=== PATIENT | female | born 1955 | race Caucasian/White ===

== ENCOUNTER 2020-04-10 18:18 | Outpatient (CLI) | payer MEDICARE, SELFPAY ==
--- NOTE | ~2020-04-10 | XR_ITS ---
EXAMINATION: XR tibia fibula LT 2V EXAM DATE: 04/10/2020 19:03 INDICATION: No known recent injury provided at this time. Pain of the left leg. TECHNIQUE: Left tibia/fibula frontal and lateral projections obtained and reviewed. There is no prio r study for comparison. FINDINGS: Left tibial and fibular shafts unremarkable. There is mild to moderate left knee primary o steoarthritis. There are no acute fractures or dislocations identified. There is no subcutaneous gas . The soft tissue is unremarkable. There are no radiopaque foreign bodies. IMPRESSION: Unremarkable tibia and fibula. Reviewed, dictated and finalized at location G.
--- NOTE | ~2020-04-10 | XR_ITS ---
EXAMINATION: XR hip LT min 2V, XR femur LT min 2V EXAM DATE: 04/10/2020 19:03 INDICATION: No known recent injury provided at this time. Pain of the left hip, leg. TECHNIQUE: Left hip frontal, 'frog leg' projections for interpretation. Left femur frontal and latera l projections of the proximal aspect, frontal and lateral projections of the lower aspect for review. There is no prior study for comparison. FINDINGS: Smooth left hip femoral head contour, no radiographic evidence of avascular necrosis. Ther e is mild left hip primary osteoarthritis. There are no acute fractures or dislocations identified. There is no subcutaneous gas. The soft tissue is unremarkable. There are no radiopaque foreign bod ies. The left femoral shaft and thigh soft tissues are unremarkable. IMPRESSION: Mild left hip osteoarthritis. Reviewed, dictated and finalized at location G. IMPRESSION: Mild left hip osteoarthritis.
--- NOTE | ~2020-04-10 | XR_ITS ---
EXAMINATION: XR knee LT 3V EXAM DATE: 04/10/2020 19:02 INDICATION: No known recent injury provided at this time. Pain of the left knee. TECHNIQUE: Three projections of the left knee. Comparison is made to prior examination from 8. FINDINGS: No evidence osteochondral defect or joint body in the left knee joint. There is mild to m oderate patellofemoral and tibiofemoral primary osteoarthritis. Small suprapatellar spur. Mild to mo derate size spurring at the patellofemoral compartment. No joint effusion. There are no acute fractur es or dislocations identified. There is no subcutaneous gas. The soft tissue is unremarkable. The re are no radiopaque foreign bodies. IMPRESSION: Mild to moderate left knee osteoarthritis, slight progression compared to prior study. Reviewed, dictated and finalized at location . IMPRESSION: Mild to moderate left knee osteoarthritis, slight progression jacy red to prior study.
--- NOTE | ~2020-04-10 | XR_ITS ---
EXAMINATION: XR ankle LT min 3V EXAM DATE: 04/10/2020 19:03 INDICATION: No known recent injury provided at this time. Pain of the left ankle. TECHNIQUE: Left ankle frontal, lateral and oblique projections obtained and reviewed. Comparison is m blayne to prior examination from 10/05/2018. FINDINGS: The left ankle mortise appears intact. There are moderate-sized posterior and inferior c alcaneal spurs. The ankle joint is unremarkable. There are no acute fractures or dislocations identif ied. There is no subcutaneous gas. The soft tissue is unremarkable. There are no radiopaque forei gn bodies. IMPRESSION: Moderate sized left calcaneal spurs. Reviewed, dictated and finalized at location G.
== END 2020-04-10 18:19 | disposition home or self-care (01) ==
PROVIDERS: PCP Family Medicine; Visit Provider Nurse Practitioner Family
DX: M25.552 Pain in left hip (principal); M79.605 Pain in left leg; M25.572 Pain in left ankle and joints of left foot; M25.462 Effusion, left knee; M25.562 Pain in left knee; M16.12 Unilateral primary osteoarthritis, left hip; M77.32 Calcaneal spur, left foot; M17.12 Unilateral primary osteoarthritis, left knee
CPT/HCPCS: 73502; 73552; 73562; 73590; 73610

== ENCOUNTER 2020-09-13 06:53 | Outpatient (NON) | payer MEDICARE, SELFPAY ==
[2020-09-14 13:44] LABS: SARS-CoV-2 RNA PCR Negative
== END 2020-09-13 06:54 ==
LOC: ANHCOVIDDT 07:16
PROVIDERS: PCP Family Medicine; Visit Provider Physician Assistant Medical
DX: Z20.828 Contact with and (suspected) exposure to other viral communicable diseases (principal); R09.89 Other specified symptoms and signs involving the circulatory and respiratory systems
CPT/HCPCS: 87635; C9803; U0003

== ENCOUNTER → 2020-10-29 13:01 | Outpatient (CLI) | payer MEDICARE, SELFPAY ==
--- NOTE | ~2020-10-29 | XR_ITS ---
EXAMINATION: XR lumbar spine 2-3V DATE: 10/29/2020 13:20 INDICATION: Right-sided low back pain TECHNIQUE: Anteroposterior and lateral views of the lumbar spine, and cone-down lateral view of the l umbosacral junction were obtained. COMPARISON: 09/07/2017 FINDINGS: There is no fracture, dislocation, or subluxation. The vertebral body heights are normal. T here is moderate loss of intervertebral disc space height at L5-S1. Mild loss of intervertebral space height is present at L3-4. Small degenerative osteophytes project from the anterior endplates of mul tiple vertebral bodies. There is moderate to severe multilevel facet osteoarthritis. Surgical clips i n the right upper quadrant are likely from prior cholecystectomy. IMPRESSION: 1. Mild lumbar spondylosis without acute findings or significant interval change. Reviewed, dictated and finalized at location A. 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 Mild lumbar spondylosis without acute findings or significant interval marshall ordonez
== END ==
PROVIDERS: PCP Family Medicine; Visit Provider Nurse Practitioner Family
DX: M54.42 Lumbago with sciatica, left side (principal); M54.41 Lumbago with sciatica, right side; G89.29 Other chronic pain
CPT/HCPCS: 72100

== ENCOUNTER 2020-11-05 14:54 | Outpatient (CLI) | payer MEDICARE, SELFPAY ==
--- NOTE | ~2020-11-05 | MR_ITS ---
EXAMINATION: MR lumbar spine wo con DATE: 11/05/2020 15:51 INDICATION: Lumbago with left-sided sciatica. TECHNIQUE: Magnetic resonance imaging (MRI) of the lumbar spine was performed without intravenous con trast. Sequences included sagittal T2-weighted FSE, sagittal T2-weighted FS FSE, sagittal T1-weighted FSE, and axial T2-weighted FSE. COMPARISON: Lumbar spine MRI 10/01/2017 FINDINGS: There is 20 degrees dextroscoliosis of thoracolumbar spine. There are Schmorl's nodes at T1 1-T11 and T11-T12. There is a hemangioma in L3 vertebral body. There is mildly decreased disc height from T12-L1 through L3-L4. The distal spinal cord signal intensity is normal. The conus medullaris is at L1. The following disc levels are specifically discussed: L1-L2: The disc is bulging. There is mild bilateral facet joint osteoarthritis. There is mild bilater al neural foraminal stenosis. There is mild central canal stenosis. L2-L3: The disc is bulging. There is mild bilateral facet joint osteoarthritis. There is mild bilater al neural foraminal stenosis. There is mild central canal stenosis. L3-L4: The disc is bulging. There is moderate right and severe left facet joint osteoarthritis. There is mild bilateral neural foraminal stenosis. There is mild central canal stenosis. L4-L5: The disc does not extend beyond the endplate margin. There is moderate right and severe left f acet joint osteoarthritis. There is mild bilateral neural foraminal stenosis. There is no central can al stenosis. L5-S1: The disc does not extend beyond the endplate margin. There is moderate bilateral facet joint o steoarthritis. There is no neural foraminal stenosis. There is no central canal stenosis. IMPRESSION: 1. Mild lumbar spondylosis, stable from 10/01/2017. 2. Thoracolumbar dextroscoliosis. Reviewed, dictated and finalized at location B. 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
== END 2020-11-05 14:55 | disposition home or self-care (01) ==
LOC: ANHIMG 15:03
PROVIDERS: PCP Family Medicine; Visit Provider Nurse Practitioner Family
DX: M54.42 Lumbago with sciatica, left side (principal); M54.41 Lumbago with sciatica, right side; G89.29 Other chronic pain; M47.816 Spondylosis without myelopathy or radiculopathy, lumbar region; M41.85 Other forms of scoliosis, thoracolumbar region
CPT/HCPCS: 72148

== ENCOUNTER 2022-02-16 07:37 | Outpatient (CLI) | payer MEDICARE, SELFPAY ==
--- NOTE | ~2022-02-16 | XR_ITS ---
EXAMINATION: XR knee LT 2V DATE: 02/16/2022 08:16 INDICATION: Left knee pain TECHNIQUE: Two views of the left knee were obtained. COMPARISON: 04/10/2020 FINDINGS: Alignment is normal. No fracture or osteochondral lesion. There is mild osteoarthritis of t he lateral compartment and moderate osteoarthritis of the patellofemoral and medial compartments. No joint effusion/synovitis. Soft tissues are unremarkable. IMPRESSION: 1. Tricompartmental osteoarthritis without significant change. Reviewed, dictated and finalized at location A.
--- NOTE | ~2022-02-16 | XR_ITS ---
EXAMINATION: XR chest 2V DATE: 02/16/2022 08:16 INDICATION: Cough TECHNIQUE: PA and lateral views of the chest are obtained. COMPARISON: 02/05/2016 FINDINGS: The lungs are free of acute opacities. There is no pleural effusion or pneumothorax. The ca rdiomediastinal silhouette is normal. There is mild thoracic spondylosis. IMPRESSION: 1. No acute cardiopulmonary abnormality. Reviewed, dictated and finalized at location A.
--- NOTE | ~2022-02-16 | XR_ITS ---
EXAMINATION: XR tibia fibula LT 2V INDICATION: Left leg pain TECHNIQUE: Two views of the left tibia and fibula are obtained on three radiographs. COMPARISON: None available FINDINGS: Bone alignment is normal. There is no fracture. There is mild/moderate osteoarthritis of th e knee. Soft tissues are unremarkable. IMPRESSION: 1. No acute osseous abnormality. Reviewed, dictated and finalized at location A.
--- NOTE | ~2022-02-16 | XR_ITS ---
EXAMINATION: XR ankle LT 2V DATE: 02/16/2022 08:16 INDICATION: Left ankle pain TECHNIQUE: Two views of the left ankle were obtained. COMPARISON: 03/21/2020 FINDINGS: Bone alignment is normal. There is no fracture. The soft tissues are unremarkable. Posterio r and plantar calcaneal enthesophytes are noted. IMPRESSION: 1. No acute osseous abnormality. Reviewed, dictated and finalized at location A.
--- NOTE | 2022-02-16 08:28 | ECG_ITS ---
Measurements Intervals [place] Rate: 77 P: KS: 0 QRS: -43 QRSD: 92 T: 93 QT: 412 QTc: 468 Interpretive Statements ATRIAL FIBRILLATION LOW QRS VOLTAGE IN PRECORDIAL LEADS INCOMPLETE RIGHT BUNDLE BRANCH BLOCK BORDERLINE R WAVE PROGRESSION, ANTERIOR LEADS BORDERLINE ST-T WAVE ABNORMALITY- ANT/HIGH LAT LEADS BASELINE ARTIFACT- I, II, III, AVR, AVL, AVF, V1, V3 ABNORMAL ECG Electronically Signed On 02-16-2022 8:50:08 CDT by Noah Doe D.O.
== END 2022-02-16 07:38 | disposition home or self-care (01) ==
PROVIDERS: PCP Family Medicine; Visit Provider Nurse Practitioner Family
DX: M79.605 Pain in left leg (principal); I10 Essential (primary) hypertension; R05.9 Cough, unspecified; M17.12 Unilateral primary osteoarthritis, left knee; R94.31 Abnormal electrocardiogram [ECG] [EKG]
CPT/HCPCS: 71046; 73560; 73590; 73600; 93005

== ENCOUNTER 2022-05-25 00:15 | Day surgery (SDC) | payer MEDICARE, SELFPAY ==
[2022-05-25] VITALS (11 sets, daily range): BP systolic 110–123; BP diastolic 60–85; PULSE 73–83; RESP 18–20; TEMP 37.1; O2SAT 97–100; BMI 34.9
--- NOTE | 2022-05-25 08:30 | ECG_ITS ---
Measurements Intervals [place] Rate: 81 P: 84 MD: 264 QRS: -45 QRSD: 85 T: 91 QT: 363 QTc: 423 Interpretive Statements SINUS RHYTHM WITH FIRST DEGREE AV BLOCK LOW QRS VOLTAGE IN PRECORDIAL LEADS [QRS DEFLECTION < 1.0 mV IN CHEST LEADS] POOR R-WAVE PROGRESSION INFERIOR MYOCARDIAL INFARCTION , OLD COMPARED TO ECG 05/25/2022 08:40:27 SINUS RHYTHM REPLACES ATRIAL FIB Electronically Signed On 05-25-2022 14:34:30 CDT by Jon Coburn M.D.
[2022-05-25 09:19] LABS: Anion Gap 10 mmol/L (8-16); Blood Urea Nitrogen 24 mg/dL (7-17); Calcium 9.2 mg/dL (8.4-10.2); Carbon Dioxide 29 mmol/L (22-30); Chloride 99 mmol/L (98-107); Estimated Glomerular Filt Rate > 60; Glucose 121 mg/dL (65-110); Magnesium 1.9 mg/dL (1.6-2.3); Potassium 3.8 mmol/L (3.4-5.0); Sodium 138 mmol/L (137-145)
[2022-05-25] MEDS: SODIUM CHLORIDE 0.9% IV 500 ML 30 ML (09:30)
--- NOTE | 2022-05-25 10:15 | ECG_ITS ---
Measurements Intervals [place] Rate: 85 P: KS: 0 QRS: -32 QRSD: 80 T: 68 QT: 379 QTc: 453 Interpretive Statements ATRIAL FIBRILLATION MARKED LEFT AXIS DEVIATION [QRS AXIS < -30] LOW QRS VOLTAGE IN PRECORDIAL LEADS [QRS DEFLECTION < 1.0 mV IN CHEST LEADS] POSSIBLE RIGHT VENTRICULAR CONDUCTION DELAY [RSR (QR) IN V1/V2] INFERIOR MYOCARDIAL INFARCTION , PROBABLY OLD [40+ ms Q WAVE AND/OR ST/T ABNORMALITY IN II/aVF] COMPARED TO ECG 02/16/2022 08:40:16 NO SIGNIFICANT DIFFERENCE Electronically Signed On 05-25-2022 14:29:52 CDT by Jon Coburn M.D.
--- NOTE | 2022-05-25 10:34 | WPDMODSED ---
Moderate Sedation Note-Pt Data Patient Data Diagnosis: Persistent atrial fibrillation Present Complaint: No complaints Procedure to be performed/Plan: DC cardioversion Allergies Allergy/AdvReac Type Severity Reaction Status Date / Time cortisone Allergy Unknown Unknown Verified 05/25/22 09:17 Home Medications Medication Instructions Recorded Confirmed Type triamterene 75 1 tablet PO DAILY #90 tabs 12/08/21 05/25/22 Rx mg-hydrochlorothiazide 50 mg tablet meloxicam 15 mg tablet See Rx Instructions .Route 02/02/22 05/25/22 Rx .COMPLEX #90 tabs atorvastatin 80 mg tablet 80 mg PO DAILY #30 tabs 03/23/22 05/25/22 Rx rivaroxaban 20 mg tablet 20 mg PO DAILY 05/04/22 05/25/22 History diazepam 2 mg tablet 2 mg PO BID #60 tabs 05/18/22 05/25/22 Rx Current Medications: Active Medications Sodium Chloride (Normal Saline Iv) 1,000 mls @ 30 mls/hr IV CONT .Q24H LANA Sedation/Anesthesia: No previous sedation/anesthesia problems (including family history). [facility] Past Medical History Medical History BMI over 35 Family History Family History Father Hypertension Family history of coronary artery disease Family history of malignant neoplasm Mother Hypertension Family history of coronary artery disease Family history of congenital heart disease Family history of arthritis Dementia Sibling Hypertension Family history of diabetes mellitus in first degree relative Family history of coronary artery disease Diabetes mellitus Family history of congenital heart disease CHF (congestive heart failure) Social History Social History Smoking status: Never smoker Second hand tobacco smoke exposure: No Alcohol intake: former Substance use: never Substance use type: does not use 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 Gender identity (if verbalized by the patient): Female Mod Sed Physical Exam Physical Exam Pre Procedural Exam: Normal: Neck, Throat, Airway, Lungs, Heart Size, Neuro Exam and Extremities and Variation: Appearance (Overweight lady no apparent distress), Heart Rate and Heart Rhythm (Irregularly irregular) Hours since solid foods: 12 Hours since liquid intake: 12 Mallampati Classification: class II Internal Medicine - PN: Obj Da Vital Signs Vital Signs: Vital Signs - 24 hr 05/25/22 09:15 Temperature 37.1 C Pulse Rate 74 Respiratory Rate 18 Blood Pressure 122/72 Pulse Oximetry 97 Oxygen Delivery Room Air Meds/Results Medications: Active Medications Generic Name Dose Route Start Last Admin Trade Name Cullenq PRN Reason Stop Dose Admin Sodium Chloride 1,000 mls @ 30 mls/hr 05/25/22 08:30 Normal Saline Iv IV CONT .Q24H LANA Labs CBC & Chem 7: 05/25/22 08:44 Labs: Laboratory Results - last 24 hr 05/25/22 08:44 Sodium 138 Potassium 3.8 Chloride 99 Carbon Dioxide 29 Anion Gap 10 BUN 24 H Creatinine 0.60 L Estim Creat Clear Calc Not Reportable Estimated GFR > 60 Glucose 121 H Calcium 9.2 Magnesium 1.9 ASA Classification/Sedation ASA Classification/Sedation ASA Class: III Emergent: No Risks: Risks, benefits and alternatives explained and patient/family accepted plan for sedation. Patient re-evaluated immediately prior to sedation.
--- NOTE | 2022-05-25 10:47 | WPDCARDPROC ---
Cardiac Cath Procedure Note Date of procedure:: 05/25/22 Performing physician:: Jon Coburn MD Indication:: Persistent atrial fibrillation Brief clinical history:: This is a 66-year-old lady with a history of dyslipidemia. On routine office follow-up she was found to be in atrial fibrillation with which she appears to be asymptomatic. She does not have any evidence of structural heart disease by echo. An attempt at restoring sinus rhythm electrically has been recommended following sufficient outpatient anticoagulation with Xarelto. Procedure Procedure performed:: DC cardioversion Sedation/Medication given:: Propofol 40 mg Estimated blood loss:: No blood loss Procedure note:: Patient was brought to the cardiac catheterization lab holding area in the postabsorptive state defibrillator patches were placed in the AP position. She had peripheral IV access established. She was then sedated with propofol 1 bolus of 40 mg provided very good sedation she was then cardioverted in a synchronized fashion using 200 joules which did restore normal sinus rhythm with heart rate of 75. Findings:: As above Conclusion:: Successful uncomplicated DC cardioversion terminating atrial fibrillation restoring sinus rhythm using 200 joules x1 shock Jon Coburn MD [facility]
[2022-05-25] MEDS: FLECAINIDE ACETATE 100 MG TABLET PO (11:29)
== END 2022-05-25 12:25 | disposition home or self-care (01) ==
PROVIDERS: PCP Family Medicine; Visit Provider Specialist
PROC: 5A2204Z Restoration of Cardiac Rhythm, Single (ICD-10-PCS; principal; 2022-05-25 10:00)
DX: I48.19 Other persistent atrial fibrillation (principal); E78.5 Hyperlipidemia, unspecified; Z79.01 Long term (current) use of anticoagulants; I25.2 Old myocardial infarction
CPT/HCPCS: 36415; 80048; 83735; 92960; A9270; J2704; J7040

== ENCOUNTER 2022-07-10 00:11 | Day surgery (SDC) | payer MEDICARE, SELFPAY ==
[2022-07-07 13:21] VITALS: BMI 34.3
[2022-07-10 07:41] VITALS: BP 117/54; PULSE 79; RESP 18; TEMP 36.6; O2SAT 100
[2022-07-10] MEDS: LACTATED RINGERS 1,000 ML 150 ML IV CONT (07:54)
--- NOTE | 2022-07-10 08:17 | PM.HPGS ---
History of Present Illness History of Present Illness Consent: Risks, benefits, and alternatives have been discussed and questions answered. Patient agrees to proceed with procedure. Chief complaint: neoplasm screening Narrative: Simona Bright is a 67 year old female here for screening colonoscopy, last one 2012 Review of Systems Constitutional: Constitutional: Denies headache(s) and Denies weakness Eyes: Eyes: Denies blurry vision ENT: Reports Normal hearing present, Denies headache(s) and Denies neck pain Cardiovascular: Cardiovascular: Denies chest pain and Denies dyspnea Respiratory: Respiratory: Denies dyspnea Gastrointestinal: Gastrointestinal: Reports no additional gastrointestinal complaints Genitourinary: Genitourinary: Denies dysuria Musculoskeletal: Musculoskeletal: Denies neck pain Integumentary/Breasts: Skin/Breast: Denies dry skin Neurologic: Reports Normal hearing present, Denies headache(s) and Denies weakness Psychiatric: Psychiatric: Denies anxiety Endocrine: Endocrine: Denies change in body appearance Hematologic/Lymphatic: Hematologic/Lymphatic: Denies easy bleeding Allergic/Immunologic: Allergic/Immunologic: Denies urticaria PMFSH Past Medical History Medical History BMI over 35 Family History Family History Father Hypertension Family history of coronary artery disease Family history of malignant neoplasm Pancreatic cancer Mother Hypertension Family history of coronary artery disease Family history of congenital heart disease Family history of arthritis Dementia Angina pectoris Sibling Hypertension Family history of diabetes mellitus in first degree relative Family history of coronary artery disease Diabetes mellitus Family history of congenital heart disease CHF (congestive heart failure) Sibling COPD (chronic obstructive pulmonary disease) Diabetes mellitus Tobacco abuse Social History Social History Smoking status: Never smoker Second hand tobacco smoke exposure: No Alcohol intake: never Substance use: never Substance use type: does not use Living arrangements: with family 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 Gender identity (if verbalized by the patient): Female Spiritual care concerns: No Meds Home Medications and Allergies Home Medications Medication Instructions Recorded Confirmed Type meloxicam 15 mg tablet See Rx Instructions .Route 02/02/22 07/07/22 Rx .COMPLEX #90 tabs rivaroxaban 20 mg tablet 20 mg PO DAILY 05/04/22 07/10/22 History diazepam 2 mg tablet 2 mg PO BID #60 tabs 05/18/22 07/07/22 Rx atorvastatin 80 mg tablet 80 mg PO DAILY #30 tabs 06/07/22 07/07/22 Rx triamterene 75 See Rx Instructions .Route 06/07/22 07/07/22 Rx mg-hydrochlorothiazide 50 mg tablet .COMPLEX #90 tabs flecainide 100 mg tablet 100 mg PO Q12HR 06/08/22 07/10/22 History [id number]-[id number]-[place]-omega 1 cap PO DAILY 07/07/22 07/07/22 History 3,6,9 #3 400 mcg capsule Allergies Allergy/AdvReac Type Severity Reaction Status Date / Time cortisone Allergy Intermediate Swelling Verified 07/10/22 07:39 of Lip/Tongue/Throat Vital Signs Vital Signs - 24 hr 07/10/22 07:41 Temperature 97.8 F Pulse Rate 79 Respiratory Rate 18 Blood Pressure 117/54 L Pulse Oximetry 100 Oxygen Delivery Room Air Exam Const: General: comfortable and no acute distress HENMT: General nose exam: Normal nares present Eyes: General: appearance normal, both eyes and all related structures Neck: Neck: no JVD Resp: Auscultation: clear to auscultation bilaterally Cardio: Rate: regular rate Rhythm: regular rhythm GI: Inspection: non-distended GI Palp: Yes Soft to palpation Skin:
--- NOTE | 2022-07-10 08:27 | WPDANESEPPF ---
Anes - Initial Pre Proc Eval Procedure: Operation Date: 07/10/22 08:30 Proposed Procedures p Screening Colonoscopy - Cornell Huggins MD Date/Time: 07/10/22 08:27 Surgeon: Cornell Huggins MD Pre Op Diagnosis: neoplasm screening Patient Data Age: 67 Gender: F Height: 1.68 m Weight: 94.6 kg Last Vital Signs Temp 97.8 F 07/10/22 07:41 Pulse 79 07/10/22 07:41 Resp 18 07/10/22 07:41 BP 117/54 L 07/10/22 07:41 Pulse Ox 100 07/10/22 07:41 O2 Del Method Room Air 07/10/22 07:41 Allergies Allergy/AdvReac Type Severity Reaction Status Date / Time cortisone Allergy Intermediate Swelling Verified 07/10/22 07:39 of Lip/Tongue/Throat Home Medications Medication Instructions Recorded Confirmed Type meloxicam 15 mg tablet See Rx Instructions .Route 02/02/22 07/07/22 Rx .COMPLEX #90 tabs rivaroxaban 20 mg tablet 20 mg PO DAILY 05/04/22 07/10/22 History diazepam 2 mg tablet 2 mg PO BID #60 tabs 05/18/22 07/07/22 Rx atorvastatin 80 mg tablet 80 mg PO DAILY #30 tabs 06/07/22 07/07/22 Rx triamterene 75 See Rx Instructions .Route 06/07/22 07/07/22 Rx mg-hydrochlorothiazide 50 mg tablet .COMPLEX #90 tabs flecainide 100 mg tablet 100 mg PO Q12HR 06/08/22 07/10/22 History exddaqzdkfuc-dqtjrwds-[place]-omega 1 cap PO DAILY 07/07/22 07/07/22 History 3,6,9 #3 400 mcg capsule Patient hx anesthesia problems: none Family hx anesthesia problems: none Results Review: All pre-operative results and documents have been reviewed as part of the pre-operative evaluation. [facility] Past Medical History Medical History BMI over 35 Family History Family History Father Hypertension Family history of coronary artery disease Family history of malignant neoplasm Pancreatic cancer Mother Hypertension Family history of coronary artery disease Family history of congenital heart disease Family history of arthritis Dementia Angina pectoris Sibling Hypertension Family history of diabetes mellitus in first degree relative Family history of coronary artery disease Diabetes mellitus Family history of congenital heart disease CHF (congestive heart failure) Sibling COPD (chronic obstructive pulmonary disease) Diabetes mellitus Tobacco abuse Social History Social History Smoking status: Never smoker Second hand tobacco smoke exposure: No Alcohol intake: never Substance use: never Substance use type: does not use Living arrangements: with family 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 Informed Consent: The patient's anesthetic plan and its attendant risks and benefits were discussed with the patient/family/POA. Questions were solicited and answers provided to the satisfaction of the patient/family/POA.
[2022-07-10 08:37] VITALS: BP 113/82; PULSE 74; RESP 18; O2SAT 100
[2022-07-10 08:47] VITALS: BP 133/69; PULSE 81; RESP 18; O2SAT 100
[2022-07-10 08:57] VITALS: BP 119/78; PULSE 73; RESP 20; O2SAT 100
== END 2022-07-10 09:06 | disposition home or self-care (01) ==
PROVIDERS: PCP Family Medicine; Visit Provider Internal Medicine Gastroenterology
PROC: 0DJD8ZZ Inspection of Lower Intestinal Tract, Via Natural or Artificial Opening Endoscopic (ICD-10-PCS; CPT 45378; principal; 2022-07-10 08:30)
DX: Z12.11 Encounter for screening for malignant neoplasm of colon (principal); Z79.4 Long term (current) use of insulin; E66.9 Obesity, unspecified; Z68.33 Body mass index [BMI] 33.0-33.9, adult
CPT/HCPCS: G0121; J2704; J7120

== ENCOUNTER 2023-09-02 07:51 | Day surgery (SDC) | payer MEDICARE, SELFPAY ==
[2023-08-13 13:27] VITALS: BMI 36.1
[2023-08-17 14:56] VITALS: BMI 34.8
--- NOTE | 2023-08-17 15:19 | PC.NURSE ---
PT STATES SHE IS HAVING HER CBC DRAWN ON AUGUST 24
[2023-09-02 08:40] VITALS: BP 131/77; PULSE 77; RESP 20; TEMP 36.1; O2SAT 98
--- NOTE | 2023-09-02 08:51 | WPDANESEPPF ---
Anes - Initial Pre Proc Eval Procedure: Operation Date: 09/02/23 10:00 Proposed Procedures p Esophagogastroduodenoscopy - Cornell Huggins MD Date/Time: 09/02/23 08:51 Surgeon: Cornell Huggins MD Pre Op Diagnosis: Iron Deficiency Anemia Patient Data Age: 68 Gender: F Height: 1.68 m Weight: 98 kg Allergies Allergy/AdvReac Type Severity Reaction Status Date / Time cortisone Allergy Intermediate Swelling Verified 08/17/23 14:53 of Lip/Tongue/Throat Home Medications Medication Instructions Recorded Confirmed Type flecainide 100 mg tablet 100 mg PO Q12HR 06/08/22 08/17/23 History wqwjmiqzmokf-addkgujo-JI-omega 1 cap PO DAILY 07/07/22 08/17/23 History 3,6,9 #3 400 mcg capsule triamterene 75 See Rx Instructions .Route 05/19/23 08/17/23 Rx mg-hydrochlorothiazide 50 mg tablet .COMPLEX #90 tabs atorvastatin 80 mg tablet 80 mg PO DAILY #90 tabs 06/01/23 08/17/23 Rx meloxicam 15 mg tablet See Rx Instructions .Route 06/06/23 08/17/23 Rx .COMPLEX #90 tabs ferrous sulfate 325 mg (65 mg 325 mg PO TID #90 tabs 07/26/23 08/17/23 Rx iron) tablet diazepam 2 mg tablet 2 mg PO BID #60 tabs 08/05/23 08/17/23 Rx rivaroxaban 20 mg tablet 20 mg PO DAILY 08/12/23 08/17/23 History Patient hx anesthesia problems: none Family hx anesthesia problems: none Results Review: All pre-operative results and documents have been reviewed as part of the pre-operative evaluation. [facility], LAT[facility] Past Medical History Medical History BMI over 35 Surgical History Surgical History H/O colonoscopy Family History Family History Father Hypertension Family history of coronary artery disease Family history of malignant neoplasm Pancreatic cancer Mother Hypertension Family history of coronary artery disease Family history of congenital heart disease Family history of arthritis Dementia Angina pectoris Sibling Hypertension Family history of diabetes mellitus in first degree relative Family history of coronary artery disease Diabetes mellitus Family history of congenital heart disease CHF (congestive heart failure) Sibling COPD (chronic obstructive pulmonary disease) Diabetes mellitus Tobacco abuse Social History Social History Smoking status: Never smoker Second hand tobacco smoke exposure: No Alcohol intake: never Substance use: never Substance use type: does not use Living arrangements: with family Occupation/Education: occupation 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 Informed Consent: The patient's anesthetic plan and its attendant risks and benefits were discussed with the patient/family/POA. Questions were solicited and answers provided to the satisfaction of the patient/family/POA.
[2023-09-02] MEDS: LACTATED RINGERS 1,000 ML 150 ML IV CONT (09:08)
--- NOTE | 2023-09-02 10:01 | WPDHPUPDATE1 ---
History and Physical Update Update Date/Time: 09/02/23 10:01 History and Physical has been reviewed, including an updated exam of the patient. There are NO changes in the patient's condition. Risks, benefits, and alternatives have been discussed and questions answered. Patient agrees to proceed with procedure.
[2023-09-02 10:22] VITALS: BP 112/67; PULSE 72; RESP 16; O2SAT 100
[2023-09-02 10:32] VITALS: BP 116/64; PULSE 70; RESP 16; O2SAT 99
--- NOTE | 2023-09-02 10:39 | WPDANESPN ---
Anes - Prog Note Post-Op Date/Time: 09/02/23 10:39 Cardiovascular status: normal Respiratory status: normal Airway patency: baseline Mental status: baseline Post-Op hydration status: normal Vital Signs: Last Vital Signs Temp 36.1 C L 09/02/23 08:40 Pulse 77 09/02/23 08:40 Resp 20 09/02/23 08:40 BP 131/77 09/02/23 08:40 Pulse Ox 98 09/02/23 08:40 O2 Del Method Room Air 09/02/23 08:40 Pain Score (VAS): 0 Patient Feedback: Patient satisfied with anesthetic care.
[2023-09-02 10:42] VITALS: BP 130/72; PULSE 67; RESP 16; O2SAT 100
== END 2023-09-02 11:01 | disposition home or self-care (01) ==
PROVIDERS: PCP Family Medicine; Visit Provider Internal Medicine Gastroenterology
PROC: 0DJ08ZZ Inspection of Upper Intestinal Tract, Via Natural or Artificial Opening Endoscopic (ICD-10-PCS; CPT 43235; principal; 2023-09-02 10:00)
DX: D64.9 Anemia, unspecified (principal); K29.70 Gastritis, unspecified, without bleeding
CPT/HCPCS: 43239

== ENCOUNTER 2023-09-02 08:29 | Outpatient (NON) | payer MEDICARE, SELFPAY | END 2023-09-02 08:30 | disposition home or self-care (01) | PROVIDERS: PCP Family Medicine; Visit Provider Internal Medicine Gastroenterology | DX: D50.9 Iron deficiency anemia, unspecified (principal) | CPT/HCPCS: 88305 ==

== ENCOUNTER 2023-12-31 00:11 | Day surgery (SDC) | payer MEDICARE, SELFPAY ==
[2023-12-30 15:22] VITALS: BMI 34.0
[2023-12-31] VITALS (10 sets, daily range): BP systolic 102–117; BP diastolic 57–93; PULSE 71–76; RESP 14–18; TEMP 36.2–36.8; O2SAT 96–100; BMI 34.8
[2023-12-31 08:08] LABS: Basophils Percent Auto 0.6 % (0.2-1.2); Eosinophils Absolute Auto 0.1 K/mm3 (0-0.3); Eosinophils Percent Auto 2.2 % (0-4.4); Hematocrit 40.8 % (37.0-47.0); Immature Granulocyte Absolute 0.01 K/mm3 (0.00-0.031); Immature Granulocyte Percent A 0.2 % (0-0.5); Lymphocytes Percent Auto 29.6 % (18.3-44.2); Mean Corpuscular HGB Conc 34.3 g/dl (32-36); Mean Corpuscular Volume 87.4 fl (80-100); Mean Platelet Volume 10.3 fl (7.4-10.4); Monocytes Absolute Auto 0.6 K/mm3 (0.1-0.6); Monocytes Percent Auto 10.2 % (2.6-8.5); Neutrophils Absolute Auto 3.1 K/mm3 (1.3-6.7); Neutrophils Percent Auto 57.2 % (45.5-73.1); Platelet Count Result 247 k/mm3 (150-375); Red Blood Count 4.67 M/mm3 (4.2-5.4); Red Cell Distribution Width 13.2 % (11.5-14.5); White Blood Count 5.4 K/mm3 (4.5-10.0)
[2023-12-31 08:17] LABS: Anion Gap 4 mmol/L (8-16); Blood Urea Nitrogen 22 mg/dL (7-17); Calcium 9.4 mg/dL (8.4-10.2); Carbon Dioxide 34 mmol/L (22-30); Chloride 102 mmol/L (98-107); Estimated CRCL calculation 76 ml/min; Estimated Glomerular Filt Rate > 60; Glucose 117 mg/dL (65-110); Potassium 3.3 mmol/L (3.4-5.0); Sodium 140 mmol/L (137-145)
[2023-12-31] MEDS: SODIUM CHLORIDE 0.9% IV 500 ML 100 ML IV CONT (08:30)
--- NOTE | 2023-12-31 09:13 | WPDMODSED ---
Moderate Sedation Note-Pt Data Patient Data Diagnosis: Paroxysmal atrial fibrillation Intermittent chest pain Abnormal nuclear stress test Present Complaint: No complaints this morning Procedure to be performed/Plan: Left heart catheterization Allergies Allergy/AdvReac Type Severity Reaction Status Date / Time cortisone Allergy Intermediate Swelling Verified 12/30/23 15:47 of Lip/Tongue/Throat Home Medications Medication Instructions Recorded Confirmed Type flecainide 100 mg tablet 100 mg PO Q12HR 06/08/22 12/31/23 History wdthxlrowuiw-utuiwmoz-LF-omega 1 cap PO DAILY 07/07/22 12/30/23 History 3,6,9 #3 400 mcg capsule triamterene 75 See Rx Instructions .Route 05/19/23 12/30/23 Rx mg-hydrochlorothiazide 50 mg tablet .COMPLEX #90 tabs meloxicam 15 mg tablet See Rx Instructions .Route 06/06/23 12/31/23 Rx .COMPLEX #90 tabs rivaroxaban 20 mg tablet 20 mg PO DAILY 08/12/23 12/30/23 History diazepam 2 mg tablet 2 mg PO BID #60 tabs 09/13/23 12/31/23 Rx atorvastatin 80 mg tablet 80 mg PO DAILY #90 tabs 11/09/23 12/31/23 Rx ferrous sulfate 325 mg (65 mg 325 mg PO DAILY #90 tabs 12/08/23 12/31/23 Rx iron) tablet cyanocobalamin (vitamin B-12) 1,000 mcg PO DAILY 12/30/23 12/30/23 History 1,000 mcg tablet (Vitamin B-12) Current Medications: Active Medications Sodium Chloride (Normal Saline Iv) 500 mls @ 100 mls/hr IV CONT .Q5H LANA Sedation/Anesthesia: No previous sedation/anesthesia problems (including family history). [facility] Past Medical History Medical History BMI over 35 Surgical History Surgical History H/O colonoscopy Family History Family History Father Hypertension Family history of coronary artery disease Family history of malignant neoplasm Pancreatic cancer Mother Hypertension Family history of coronary artery disease Family history of congenital heart disease Family history of arthritis Dementia Angina pectoris Sibling Hypertension Family history of diabetes mellitus in first degree relative Family history of coronary artery disease Diabetes mellitus Family history of congenital heart disease CHF (congestive heart failure) Sibling COPD (chronic obstructive pulmonary disease) Diabetes mellitus Tobacco abuse Social History Social History Smoking status: Never smoker Second hand tobacco smoke exposure: No Alcohol intake: never Substance use: never Substance use type: does not use Living arrangements: with family Occupation/Education: occupation 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 Gender identity (if verbalized by the patient): Female Spiritual care concerns: No Mod Sed Physical Exam Physical Exam Pre Procedural Exam: Normal: Throat, Airway, Lungs, Heart Rate, Heart Rhythm, Neuro Exam and Extremities and Variation: Appearance (Pleasant obese white female no apparent distress) and Heart Size (PMI difficult to palpate) Hours since solid foods: 12 Hours since liquid intake: 12 Mallampati Classification: class II Internal Medicine - PN: Obj Da Vital Signs Vital Signs: Vital Signs - 24 hr 12/31/23 08:00 Temperature 36.2 C L Pulse Rate 73 Respiratory Rate 14 Blood Pressure 115/93 H Pulse Oximetry 96 Oxygen Delivery Room Air Meds/Results Medications: Active Medications Generic Name Dose Route Start Last Admin Trade Name Freq PRN Reason Stop Dose Admin Sodium Chloride 500 mls @ 100 mls/hr 12/31/23 07:30 Normal Saline Iv IV CONT .Q5H LANA Labs 12/31/23 07:55 12/31/23 07:55 Labs: Laboratory Results - last 24 hr 12/31/23 07:55 WBC 5.4 RBC 4.67 Hgb 14.0 Hct 40.8
--- NOTE | 2023-12-31 09:49 | WPDCARDPROC ---
Cardiac Cath Procedure Note Date of procedure:: 12/31/23 Performing physician:: Jon Coburn MD Indication:: Intermittent chest pain atrial fibrillation currently in sinus rhythm abnormal nuclear stress test Brief clinical history:: this is a 68-year-old woman with a history of atrial fibrillation that is being successfully maintained in sinus rhythm with flecainide treatment. She has been experiencing intermittent episodes of chest pain that are atypical and nonexertional in nature. A nuclear stress test was done to investigate this which was interpreted as showing anterior ischemia. For this reason an angiogram has been recommended. Procedure Procedure performed:: Left ventriculogram coronary angiogram Angio-Seal to right femoral artery Sedation/Medication given:: fentanyl 50 mg Versed 2 mg case start time 9:29 a.m. case end time 9:45 a.m. sedation provided by Olga Lidia Conteh RN, trained observer Access site:: right femoral artery Estimated blood loss:: a 20 cc Procedure note:: patient was brought to the cardiac catheterization lab in the postabsorptive state where the right femoral triangle was prepared and draped in the sterile fashion. 15 cc of lidocaine was injected locally for anesthesia. Following this using the modified Seldinger technique the right common femoral artery was punctured and a 5 Estonian vascular sheath was placed. After this left heart catheterization was carried out. I used a 5 [place]ian angled pigtail catheter to measure left-sided hemodynamics and to inject the left ventriculogram in the ER AO projection. Following this left coronary artery was engaged and injected using a 5 [place]ian FL4 catheter. The right coronary artery was then engaged and injected using a standard 5 [place]ian JR4 catheter. The cineangiograms were reviewed the case was terminated. An angiogram was performed to the femoral artery through the sheath after which a 6 [place] Angio-Seal device was deployed with a good hemostatic result. The patient will was then taken to the holding area with no evidence of any procedural complications and no evidence of groin hematoma was seen upon leaving the cardiac cath technician. Findings:: Hemodynamics: Central aortic pressure is 128 over 64 left ventricle 128/4 end-diastolic 18 there is no gradient on pullback across the aortic valve. Left ventricle: The LV is normal in size all segments contract appropriately the global ejection fraction I visually estimated to be 60%. There were no regional wall motion abnormalities. The left main coronary artery is large caliber and widely patent the left anterior descending is a moderate to large caliber vessel extending down to the apex. The LAD has diffuse mild luminal irregularities but there are no angiographically significant lesions identified. There is no disease that would explain the nuclear stress test findings as described above the circumflex is a moderate to large caliber vessel giving rise to the marginal branches and a posterior branch. Circumflex system similarly has mild diffuse luminal irregularities but no angiographically significant lesions are seen. The right coronary artery is large in caliber and is dominant to the posterior circulation the right coronary trunk has mild diffuse luminal irregularities similar to that which is seen in the left coronary artery. Once again angiographically there are no flow-limiting lesions identified. Conclusion:: 1. Right coronary dominant circulation with mild diffuse atherosclerotic plaquing but no angiographically significant coronary artery disease is identified 2. normal left ventricular systolic function 3. false-positive nuclear stress test based on these findings and symptoms of chest pain are clearly not ischemic in nature Jon Coburn MD FACC
== END 2023-12-31 13:35 | disposition home or self-care (01) ==
PROVIDERS: PCP Family Medicine; Visit Provider Specialist
PROC: 4A023N7 Measurement of Cardiac Sampling and Pressure, Left Heart, Percutaneous Approach (ICD-10-PCS; CPT 93452; principal; 2023-12-31 09:00)
DX: I25.10 Atherosclerotic heart disease of native coronary artery without angina pectoris (principal); R94.39 Abnormal result of other cardiovascular function study; I48.0 Paroxysmal atrial fibrillation; Z79.01 Long term (current) use of anticoagulants
CPT/HCPCS: 36415; 80048; 85025; 93458; C1760; C1887; C1894; G0269; J1644; J2250; J3010; J7040

== ENCOUNTER 2024-09-07 16:18 | Emergency (ER) | payer MEDICARE, SELFPAY ==
[2024-09-07 16:22] VITALS: BP 145/71; PULSE 89; RESP 20; TEMP 36.6; O2SAT 96
--- NOTE | 2024-09-07 18:51 | PC.NURSE ---
pt left d/t wait time in lobby. pt stated that she will go to another hospital
== END 2024-09-07 18:51 | disposition left against medical advice (07) ==
LOC: ANHED 18:59
PROVIDERS: PCP Family Medicine
DX: A41.9 Sepsis, unspecified organism (principal)
CPT/HCPCS: 99199